=== PATIENT | female | born 1965 | race Caucasian/White ===

== ENCOUNTER 2018-04-15 13:31 | Emergency (ER) | payer OTHER ==
[~2018-04-15] VITALS: Ht 160 cm; Wt 61.4 kg
[2018-04-15] MEDS ORDERED: AMOX-422 PO (15:27)
[2018-04-15] MEDS ORDERED: HYDR-4353 PO (15:40)
[2018-04-15 15:44] VITALS: BP 164/109
== END 2018-04-15 15:46 | disposition home or self-care (01) ==
LOC: ER 13:32
DX: S02.32XA Fracture of orbital floor, left side, initial encounter for closed fracture (principal); S00.83XA Contusion of other part of head, initial encounter; I73.00 Raynaud's syndrome without gangrene; D89.89 Other specified disorders involving the immune mechanism, not elsewhere classified; F17.200 Nicotine dependence, unspecified, uncomplicated; Z98.890 Other specified postprocedural states; Z90.710 Acquired absence of both cervix and uterus; Z90.89 Acquired absence of other organs; Z88.2 Allergy status to sulfonamides; Z88.1 Allergy status to other antibiotic agents; W21.07XA Struck by softball, initial encounter; Y93.64 Activity, baseball; Y92.89 Other specified places as the place of occurrence of the external cause; Y99.9 Unspecified external cause status
CPT/HCPCS: 70450; 70480; 99284

== ENCOUNTER 2019-02-12 05:56 | Day surgery (SDC) | payer BC, OTHER ==
[~2019-02-12] VITALS: Ht 160 cm; Wt 63.6 kg
[2019-02-12 06:03] VITALS: BP 155/96
[2019-02-12] MEDS ORDERED: HYDR200T84 PO (06:21)
[2019-02-12] MEDS ORDERED: ACET-812 PO (06:23)
[2019-02-12] MEDS ORDERED: ESTR0.5T29 PO (06:23)
[2019-02-12] MEDS ORDERED: IBUP-1985 PO (06:24)
[2019-02-12] MEDS ORDERED: MIDAZolam 5mg/5ml vial ONE (06:27)
[2019-02-12] MEDS ORDERED: fentaNYL/PF 50MCG/1 ML 2ML syringe ONE (06:27)
[2019-02-12 08:07] VITALS: BP 127/86
[2019-02-12 08:17] VITALS: BP 119/74
[2019-02-12 08:27] VITALS: BP 128/76
[2019-02-12 08:37] VITALS: BP 127/73
== END 2019-02-12 08:54 | disposition home or self-care (01) ==
LOC: GI LAB 05:56
PROVIDERS: ATTEND Internal Medicine Gastroenterology
DX: R19.7 Diarrhea, unspecified (principal); K57.30 Diverticulosis of large intestine without perforation or abscess without bleeding
CPT/HCPCS: 45380; 99152; J2250; J3010; J7040; 99153; A4620

== ENCOUNTER 2022-08-21 12:14 | Outpatient (CLI) | payer BC ==
[~2022-08-21 12:14] MED LIST: ACET-812 PO; ESTR0.5T29 PO; HYDR200T84 PO; IBUP-1985 PO
[2022-08-21 13:01] LABS: CLARITY,URINE CLEAR (Clear); COLOR,URINE STRAW (Yellow); GLUCOSE, URINE NEGATIVE (Neg); KETONES,URINE NEGATIVE (Neg); LEUKOCYTE ESTERASE ,URINE NEGATIVE (Neg); NITRITES, URINE NEGATIVE (Neg); OCCULT BLOOD,URINE NEGATIVE (Neg); PROTEIN,URINE NEGATIVE (Neg); UROBILINOGEN,URINE 0.2 E.U/dL (0.2-1.0)
[2022-08-21 13:02] LABS: BASOPHILS # (AUTO) 0.1 X10'3 (0-0.2); EOSINOPHILS # (AUTO) 0.1 X10'3 (0-0.9); EOSINOPHILS % (AUTO) 1.5 % (0-6); HEMATOCRIT 44.3 % (35.0-45.0); LYMPHOCYTES # (AUTO) 1.3 X10'3 (1.1-4.8); LYMPHOCYTES % (AUTO) 24.1 % (21-51); MEAN CORPUSCULAR HEMOGLOBIN 30.5 PG (27.0-31.0); MEAN CORPUSCULAR HGB CONC 33.7 g/dL (33.0-36.5); MEAN CORPUSCULAR VOLUME 90.5 FL (78-98); MEAN PLATELET VOLUME 8.5 FL (7.4-10.4); MONOCYTES # (AUTO) 0.4 X10'3 (0-0.9); MONOCYTES % (AUTO) 7.8 % (2-12); NEUTROPHILS # (AUTO) 3.6 X10'3 (1.8-7.7); NEUTROPHILS % (AUTO) 65.6 % (42-75); PLATELET COUNT 307 X10'3 (140-440); RED CELL DISTRIBUTION WIDTH 13.3 % (11.5-14.5); WHITE BLOOD COUNT 5.5 X10'3 (4.5-11.0)
[2022-08-21 13:08] LABS: UA COLLECTION TYPE CLN CATCH MIDSTREAM
[2022-08-21 13:21] LABS: ALANINE AMINOTRANSFERASE 24 U/L (12-78); ALBUMIN 4.3 G/DL (3.4-5.0); ALBUMIN/GLOBULIN RATIO 1.3 (1.1-1.5); ALKALINE PHOSPHATASE 69 IU/L (46-116); ANION GAP 7 (8-16); ASPARTATE AMINO TRANSFERASE 26 U/L (10-37); BILIRUBIN,TOTAL 0.4 MG/DL (0.1-1.0); BLOOD UREA NITROGEN 7 MG/DL (7-18); BUN/CREATININE RATIO 8.5 (10.0-20.0); CALCIUM 9.7 MG/DL (8.5-10.1); CHLORIDE 102 MMOL/L (99-107); CHOL/HDL RATIO 2.3 (0.00-4.99); CHOLESTEROL 233 MG/DL (0-200); CREATININE 0.82 MG/DL (0.40-0.90); GLUCOSE 103 MG/DL (70-104); HDL CHOLESTEROL 102 MG/DL (35-60); LDL CHOLESTEROL 99 MG/DL (50-100); POTASSIUM 3.9 MMOL/L (3.5-5.1); SODIUM 139 MMOL/L (135-145); TOTAL PROTEIN 7.7 G/DL (6.4-8.2); TRIGLYCERIDES 105 MG/DL (20-135); eGFR 72 ML/MIN
== END 2022-08-21 23:59 | disposition home or self-care (01) ==
LOC: LAB 12:14
PROVIDERS: ATTEND Nurse Practitioner
DX: Z00.01 Encounter for general adult medical examination with abnormal findings (principal); M35.00 Sjogren syndrome, unspecified; I73.00 Raynaud's syndrome without gangrene; M77.02 Medial epicondylitis, left elbow; M35.9 Systemic involvement of connective tissue, unspecified; N95.1 Menopausal and female climacteric states
CPT/HCPCS: 36415; 80053; 80061; 81003; 82172; 84439; 84443; 85025; 85651; 86140

== ENCOUNTER 2022-10-16 11:33 | Emergency (ER) | payer BC ==
[~2022-10-16] VITALS: Ht 157.5 cm; Wt 65.1 kg
[~2022-10-16 11:33] MED LIST changes: +HYDR200T73 PO; -HYDR200T84 PO
[2022-10-16 11:55] VITALS: BP 168/95
== END 2022-10-16 13:23 | disposition home or self-care (01) ==
LOC: ER 11:33
DX: S60.021A Contusion of right index finger without damage to nail, initial encounter (principal); Z88.2 Allergy status to sulfonamides; Z88.1 Allergy status to other antibiotic agents; X58.XXXA Exposure to other specified factors, initial encounter; Y93.89 Activity, other specified; Y92.89 Other specified places as the place of occurrence of the external cause; Y99.8 Other external cause status
CPT/HCPCS: 29130; 73140; 99283

== ENCOUNTER 2023-05-14 16:49 | Outpatient (CLI) | payer BC ==
[2023-05-14 17:52] LABS: BASOPHILS # (AUTO) 0.1 X10'3 (0-0.2); EOSINOPHILS # (AUTO) 0.2 X10'3 (0-0.9); EOSINOPHILS % (AUTO) 2.3 % (0-6); HEMATOCRIT 43.3 % (35.0-45.0); HEMOGLOBIN 14.6 g/dl (12.0-16.0); LYMPHOCYTES # (AUTO) 1.8 X10'3 (1.1-4.8); LYMPHOCYTES % (AUTO) 26.9 % (21-51); MEAN CORPUSCULAR HEMOGLOBIN 30.6 PG (27.0-31.0); MEAN CORPUSCULAR HGB CONC 33.7 g/dL (33.0-36.5); MEAN CORPUSCULAR VOLUME 90.7 FL (78-98); MEAN PLATELET VOLUME 8.7 FL (7.4-10.4); MONOCYTES # (AUTO) 0.4 X10'3 (0-0.9); MONOCYTES % (AUTO) 6.5 % (2-12); NEUTROPHILS # (AUTO) 4.3 X10'3 (1.8-7.7); NEUTROPHILS % (AUTO) 63.3 % (42-75); PLATELET COUNT 300 X10'3 (140-440); RED BLOOD COUNT 4.77 X10'6 (4.20-5.60); RED CELL DISTRIBUTION WIDTH 13.2 % (11.5-14.5); WHITE BLOOD COUNT 6.8 X10'3 (4.5-11.0)
[2023-05-14 18:14] LABS: ALANINE AMINOTRANSFERASE 29 U/L (12-78); ALBUMIN 4.2 G/DL (3.4-5.0); ALBUMIN/GLOBULIN RATIO 1.2 (1.1-1.5); ALKALINE PHOSPHATASE 60 IU/L (46-116); ANION GAP 10 (8-16); ASPARTATE AMINO TRANSFERASE 21 U/L (10-37); BILIRUBIN,TOTAL 0.4 MG/DL (0.1-1.0); BLOOD UREA NITROGEN 11 MG/DL (7-18); BUN/CREATININE RATIO 15.1 (10.0-20.0); C-REACTIVE PROTEIN 0.25 MG/DL (0.0-0.5); CALCIUM 8.8 MG/DL (8.5-10.1); CHLORIDE 103 MMOL/L (99-107); CHOL/HDL RATIO 2.1 (0.00-4.99); CHOLESTEROL 228 MG/DL (0-200); CREATININE 0.73 MG/DL (0.40-0.90); GLUCOSE 95 MG/DL (70-104); HDL CHOLESTEROL 109 MG/DL (35-60); LDL CHOLESTEROL 85 MG/DL (50-100); POTASSIUM 3.8 MMOL/L (3.5-5.1); SODIUM 142 MMOL/L (135-145); TOTAL CARBON DIOXIDE 29.5 MMOL/L (24-32); TOTAL PROTEIN 7.8 G/DL (6.4-8.2); TRIGLYCERIDES 79 MG/DL (20-135); eGFR 82 ML/MIN
== END 2023-05-14 23:59 | disposition home or self-care (01) ==
LOC: LAB 16:49
PROVIDERS: ATTEND Internal Medicine
DX: M35.00 Sjogren syndrome, unspecified (principal); R53.83 Other fatigue
CPT/HCPCS: 36415; 80053; 80061; 82043; 82570; 84439; 84443; 85025; 85651; 86140; 86706; 86735; 86762

== ENCOUNTER 2023-07-30 13:05 | Outpatient (CLI) | payer BC ==
[2023-07-30 14:04] LABS: BASOPHILS # (AUTO) 0.1 X10'3 (0-0.2); EOSINOPHILS # (AUTO) 0.1 X10'3 (0-0.9); EOSINOPHILS % (AUTO) 0.9 % (0-6); HEMATOCRIT 40.6 % (35.0-45.0); HEMOGLOBIN 13.7 g/dl (12.0-16.0); LYMPHOCYTES # (AUTO) 1.3 X10'3 (1.1-4.8); LYMPHOCYTES % (AUTO) 21.7 % (21-51); MEAN CORPUSCULAR HEMOGLOBIN 30.2 PG (27.0-31.0); MEAN CORPUSCULAR HGB CONC 33.7 g/dL (33.0-36.5); MEAN CORPUSCULAR VOLUME 89.8 FL (78-98); MEAN PLATELET VOLUME 8.2 FL (7.4-10.4); MONOCYTES # (AUTO) 0.4 X10'3 (0-0.9); MONOCYTES % (AUTO) 7.1 % (2-12); NEUTROPHILS # (AUTO) 4.2 X10'3 (1.8-7.7); NEUTROPHILS % (AUTO) 69.3 % (42-75); PLATELET COUNT 285 X10'3 (140-440); RED BLOOD COUNT 4.52 X10'6 (4.20-5.60); RED CELL DISTRIBUTION WIDTH 12.9 % (11.5-14.5); WHITE BLOOD COUNT 6.1 X10'3 (4.5-11.0)
[2023-07-30 14:16] LABS: HEMOGLOBIN A1C 5.6 % (4.5-6.2)
[2023-07-30 14:41] LABS: % IRON SATURATION 34 % (11-46); IRON 122 UG/DL (49-151); TOTAL IRON BINDING CAPACITY 355 UG/DL (259-388)
[2023-07-30 14:47] LABS: ALANINE AMINOTRANSFERASE 28 U/L (12-78); ALBUMIN 3.8 G/DL (3.4-5.0); ALBUMIN/GLOBULIN RATIO 1.1 (1.1-1.5); ALKALINE PHOSPHATASE 55 IU/L (46-116); ANION GAP 8 (8-16); ASPARTATE AMINO TRANSFERASE 25 U/L (10-37); BILIRUBIN,TOTAL 0.6 MG/DL (0.1-1.0); BLOOD UREA NITROGEN 8 MG/DL (7-18); BUN/CREATININE RATIO 11.8 (10.0-20.0); CALCIUM 8.9 MG/DL (8.5-10.1); CHLORIDE 105 MMOL/L (99-107); CHOLESTEROL 200 MG/DL (0-200); CREATININE 0.68 MG/DL (0.40-0.90); FREE T4 (FREE THYROXINE) 1.08 NG/DL (0.73-1.40); GLUCOSE 92 MG/DL (70-104); HDL CHOLESTEROL 100 MG/DL (35-60); POTASSIUM 3.4 MMOL/L (3.5-5.1); SODIUM 141 MMOL/L (135-145); TOTAL CARBON DIOXIDE 27.6 MMOL/L (24-32); TOTAL PROTEIN 7.4 G/DL (6.4-8.2); TRIGLYCERIDES 55 MG/DL (20-135); eGFR 90 ML/MIN
[2023-07-30 14:48] LABS: LDL CHOLESTEROL 88 MG/DL (50-100)
[2023-07-30 15:14] LABS: FERRITIN 237 NG/ML (8-252)
[2023-08-01 14:06] LABS: ANTINUCLEAR ANTIBODIES Positive (Negative); ESTRADIOL 29.7 pg/mL (.); TESTOSTERONE, SERUM 10 ng/dL (4-50); THIIODOTHRONINE, FREE, SERUM 2.5 pg/mL (2.0-4.4); THYROID PEROXIDASE AB <9 IU/mL (0-34); VITAMIN D, 25-HYDROXY 60.2 ng/mL (30.0-100.0)
== END 2023-07-30 23:59 | disposition home or self-care (01) ==
LOC: LAB 13:05
PROVIDERS: ATTEND Physician Assistant Medical
DX: E03.9 Hypothyroidism, unspecified (principal); M25.50 Pain in unspecified joint; E88.810 Metabolic syndrome; E78.89 Other lipoprotein metabolism disorders; N93.1 Pre-pubertal vaginal bleeding; E83.119 Hemochromatosis, unspecified
CPT/HCPCS: 36415; 80053; 80061; 82306; 82607; 82627; 82670; 82728; 83036; 83540; 83550; 84402; 84403; 84439; 84443; 84481; 85025; 86038; 86140; 86376

== ENCOUNTER 2023-12-10 11:00 | Outpatient (CLI) | payer BC ==
[2023-12-10 11:54] LABS: BILIRUBIN,URINE NEGATIVE (Neg); CLARITY,URINE CLEAR (Clear); COLOR,URINE YELLOW (Yellow); GLUCOSE, URINE NEGATIVE (Neg); KETONES,URINE NEGATIVE (Neg); LEUKOCYTE ESTERASE ,URINE NEGATIVE (Neg); NITRITES, URINE NEGATIVE (Neg); OCCULT BLOOD,URINE NEGATIVE (Neg); PH,URINE 5.5 (4.8-8.0); PROTEIN,URINE NEGATIVE (Neg); UROBILINOGEN,URINE 0.2 E.U/dL (0.2-1.0)
[2023-12-10 11:59] LABS: UA COLLECTION TYPE NON-SPECIFIED
[2023-12-10 12:33] LABS: CRP-CARDIAC RISK 3.45 MG/L; FREE T4 (FREE THYROXINE) 0.97 NG/DL (0.73-1.40)
[2023-12-10 12:39] LABS: TOTAL PROTEIN,URINE RANDOM < 6.0 MG/DL
== END 2023-12-10 23:59 | disposition home or self-care (01) ==
LOC: LAB 11:00
PROVIDERS: ATTEND Internal Medicine Rheumatology
DX: M35.00 Sjogren syndrome, unspecified (principal); Z79.899 Other long term (current) drug therapy
CPT/HCPCS: 36415; 81003; 82570; 82627; 82670; 84156; 84402; 84403; 84439; 84481; 86140; 86146; 86147; 86160; 86235; 86480; 86803; 87389; 87522